=== PATIENT | male | born 2000 | race Caucasian/White ===

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

== ENCOUNTER → 2021-11-22 | Outpatient (CLI) | payer BC, SELFPAY ==
[2021-11-22 18:45] LABS: ALB/GLOB Ratio 1.2 RATIO (0.9-2.4); AST(SGOT) 28 U/L (15-37); Alanine Aminotransfer ALT/SGPT 109 U/L (16-61); Alkaline Phosphatase 83 U/L (45-117); Anion Gap 6 (5-15); BUN 12 mg/dL (7-18); BUN/Creat Ratio 11.4 RATIO (10-20); Calcium,Total 9.3 mg/dL (8.5-10.1); Chloride 105 mmol/L (98-107); Creatinine, Serum 1.05 mg/dL (0.70-1.30); EST Glomerular Filtration Rate 95 mL/min (>60); Est Glom Filt Rate - Afr Amer 115 mL/min (>60); Globulin 3.3 g/dL (2.2-4.2); Glucose 98 mg/dL (74-106); Potassium 3.9 mmol/L (3.5-5.1); Protein, Total 7.3 g/dL (6.4-8.2); Sodium Level 138 mmol/L (136-145); T4 Free Direct 0.65 ng/dL (0.76-1.46); Thyroid Stim Hormone (TSH) 1.03 uIU/mL (0.358-3.74)
[2021-11-24 13:21] LABS: Thyroid Peroxidase AB 12 IU/mL (0-34)
== END | disposition home or self-care (01) ==
PROVIDERS: PCP Family Medicine; Referring Provider Dermatology Pediatric Dermatology; Visit Provider Dermatology Pediatric Dermatology
DX: L90.6 Striae atrophicae (principal)
CPT/HCPCS: 36415; 80053; 82533; 84439; 84443; 86376

== ENCOUNTER → 2021-11-23 | Outpatient (CLI) | payer BC, SELFPAY | END | disposition home or self-care (01) | LOC: MTLAB 08:04 | PROVIDERS: PCP Family Medicine; Referring Provider Dermatology Pediatric Dermatology; Visit Provider Dermatology Pediatric Dermatology | DX: L90.6 Striae atrophicae (principal) | CPT/HCPCS: 36415; 82533 ==

== ENCOUNTER 2024-05-23 12:44 | Emergency (ER) | payer OTHER, SELFPAY ==
[2024-05-23 12:45] VITALS: BP 130/72; PULSE 79; RESP 16; TEMP 36.8; O2SAT 99; BMI 35.6
--- NOTE | 2024-05-23 15:43 | ED.VIS.LOWEX ---
HPI <MARIBELL Mendez - Last Filed: 05/23/24 16:54> History of Present Illness Chief Complaint: Laceration Narrative Narrative: Patient presenting today with a laceration to his left lower extremity that he got this afternoon after he fell about 5 feet off of a ladder and hit his left leg against a pile of wood. He did not hit his head and denies any other injury from the fall. He is able to ambulate. No LOC occurred. He denies being in any pain. Tetanus is not up-to-date but he is not wanting to update it at this time. PFSH <MARIBELL Mendez - Last Filed: 05/23/24 16:54> [facility] Home Medications ?Medication ?Instructions ?Recorded ?Last Taken ?Type NK 05/23/24 Unknown History Allergy/AdvReac Type Severity Reaction Status Date / Time No Known Allergies Allergy Verified 05/23/24 12:45 Social History Smoking Status: Never smoker ROS <MARIBELL Mendez - Last Filed: 05/23/24 16:54> ROS ED Constitutional Constitutional ED: Denies chills or fever(s) Cardiovascular Cardiovascular: Denies chest pain Respiratory/Chest Respiratory/Chest: Denies dyspnea Musculoskeletal Musculoskeletal: Denies arthralgias or myalgias Integumentary Reports laceration Neurologic Neurologic: Denies paresthesias EXAM <MARIBELL Mendez - Last Filed: 05/23/24 16:54> Physical Exam Const Vital Signs: 05/23/24 12:45 Temperature 98.2 F Temperature Source Oral Pulse Rate 79 Respiratory Rate 16 Blood Pressure 130/72 H Blood Pressure Mean 91 Pulse Ox 99 Oxygen Delivery Method Room Air Positive well nourished, well developed and no apparent distress General Appearance ED: well developed HEENT Reports normocephalic and head/scalp atraumatic Mouth ED: Yes moist mucous membranes normal Eyes PERRL and EOMs intact bilaterally Neck full ROM and supple Chest Wall inspection of chest normal Resp normal respiratory effort and clear to auscultation bilaterally Cardio regular rate and regular rhythm Back/Spine normal ROM and normal to inspection Extremity full ROM Extremity Narrative: 4.5 cm full-thickness linear laceration to the medial aspect of the mid bateman. No active bleeding. No pain to palpation along the length of the left lower extremity, neurovascularly intact distally. Neuro oriented x3, CN's II-XII intact bilaterally, moves all extremities, no focal motor deficits and no sensory deficits noted Sensorium / Orientation: awake and alert Psych mental status grossly normal and thought process normal Skin Skin Narrative: Laceration left lower extremity, aside from this no other rashes or lesions noted. <Dr. Wiley Caputo MD - Last Filed: 05/23/24 15:56> Physical Exam Const Vital Signs: 05/23/24 12:45 Temperature 98.2 F Temperature Source Oral Pulse Rate 79 Respiratory Rate 16 Blood Pressure 130/72 H Blood Pressure Mean 91 Pulse Ox 99 Oxygen Delivery Method Room Air MDM <MARIBELL Mendze - Last Filed: 05/23/24 16:54> [facility] Narrative Medical decision making narrative: Patient presenting today with a laceration to his left lower extremity that he got this afternoon after falling off a ladder and hitting his leg against a pile of wood. No other injury from the fall occurred, he is ambulating without difficulty. Laceration will require suture repair. I did offer to update his tetanus but he is not interested. Laceration was copiously irrigated with saline and cleaned with chlorhexidine. It was explored. No foreign bodies were visualized. Laceration was repaired with sutures, see procedure note. Wound was then bandaged with bacitracin ointment. Wound care instructions were discussed with him. He is to have sutures removed in 10 to 14 days. Return instructions were discussed. He will be discharged home in stable condition. <Dr. Wiley Caputo MD - Last Filed: 05/23/24 15:56> [facility] Treatment and Re-Evaluation Narrative: I have personally performed a face to face assessment of the patient and have reviewed the ANATOLY Note. I performed a substantive portion of the visit including all aspects of the following. My batista findings include: History is minor fall from a ladder but he hit a wooden railing sustaining a laceration to his left lower leg. Denies any significant pain or limited ability to ambulate. No other injuries. Exam is 4.5 cm full-thickness clean appearing laceration to the proximal left lower leg, it is along the bateman, but medially. No arterial bleeding. Neurovascular intact distally. Full range of motion of the knee and the ankle, no bony tenderness. Medical Decison Making repair sees procedure note. Patient does not want his tetanus updated right now. Given appropriate discharge instructions. Other additions or changes: [None] Procedures <MARIBELL Mendez - Last Filed: 05/23/24 16:54> Lacerations Laceration: Depth: Sub Q Shape: Linear Prep: Chlorhexadine Laceration repair: Irrigated, Lidocaine with epi, Skin sutures and Wound explored Number of Sutures/Daxa: 5 Suture Information: Ethilon, Horizontal, Mattress and 4-0 Discharge Plan Triage Chief Complaint: Laceration ED Midlevel Provider: Laura Lao ED Provider: Wiley Caputo Dx/Rx/DC Orders Clinical Impression: Laceration, Fall Instructions: ED Laceration, All Closures Prescriptions: No Action NK Primary Care Provider: Rodrigo Serna Referrals: Rodrigo Serna MD [Primary Care Provider] - 10-14 Days suture removal Activity Restrictions/Additional Instructions: Have sutures removed in 10 to 14 days. Return for any signs of infection. Print Language: French Disposition Disposition: Home, Self Care Discharge Date/Time: 05/23/24 16:36
== END 2024-05-23 16:36 | disposition home or self-care (01) ==
PROVIDERS: Emergency Provider Emergency Medicine; PCP Family Medicine; Visit Provider Emergency Medicine
DX: S81.812A Laceration without foreign body, left lower leg, initial encounter (principal); W11.XXXA Fall on and from ladder, initial encounter
CPT/HCPCS: 12002; 99283

== ENCOUNTER → 2024-11-26 | Outpatient (CLI) | payer OTHER, SELFPAY ==
--- NOTE | 2024-11-26 10:17 | VDLE_ITS ---
Reason For Study Reason For Study: RLE PAIN RIGHT GSV is normal. CFV is compressible, spontaneous, phasic, competent and demonstrates normal augmentation. FV is compressible, spontaneous, phasic, competent and demonstrates normal augmentation. POP V is compressible, spontaneous, phasic, competent and demonstrates normal augmentation. T/P Trunk is compressible. PTV is compressible. RT PerV is compressible. Procedure This is a venous duplex using B-mode, color flow and spectral Doppler. Exam performed in department. A preliminary report was called and/or faxed to Kenia Vallejo, ZANDER @ [phone] @ 10:35am. VL/Venous Duplex US, Unilateral Interpretation Summary Deep veins of the right lower extremity are patent and compressible segmentally . There is no evidence of right lower extremity deep vein thrombosis. Valvular competence appears intact within the p roximal deep venous system on the right . The right great saphenous vein appears patent and compressible segmentally. Ordering Physician: Kenia Vallejo Referring Physician: Rodrigo Serna Performed By: Josefina Huston, RDCS, RVT
== END | disposition home or self-care (01) ==
LOC: CVS 10:15
PROVIDERS: PCP Family Medicine
DX: M79.661 Pain in right lower leg (principal); I86.8 Varicose veins of other specified sites
CPT/HCPCS: 93971